=== PATIENT | male | born 1985 | race Hispanic/Latino ===

== ENCOUNTER 2020-07-14 15:01 | Emergency (ER) | payer SELFPAY ==
--- NOTE | 2020-07-14 15:51 | RAD ---
XR Hand Lt 3 View STANDARD HISTORY: Injury, left hand pain. Cut by mirror at work FINDINGS: No fracture or dislocation is identified. No radiographic foreign bodies are identified.
[2020-07-14] MEDS ORDERED: Lidocaine 1% w/Epinephrine 1:100K 20 ML VIAL ONE (16:42)
== END 2020-07-14 17:48 | disposition home or self-care (01) ==
LOC: ERS 15:01
DX: S61.412A Laceration without foreign body of left hand, initial encounter (principal); W25.XXXA Contact with sharp glass, initial encounter; Y99.0 Civilian activity done for income or pay
CPT/HCPCS: 12002

== ENCOUNTER 2022-12-22 21:32 | Emergency (ER) | payer SELFPAY ==
[2022-12-23] MEDS ORDERED: Lidocaine 1% (PF) 30 ML VIAL ONE (01:33)
[2022-12-23] MEDS ORDERED: Bacitracin 1 PK ONE (03:08)
== END 2022-12-23 03:54 | disposition home or self-care (01) ==
LOC: ERS 21:32
DX: S06.9X1A Unspecified intracranial injury with loss of consciousness of 30 minutes or less, initial encounter (principal); S01.112A Laceration without foreign body of left eyelid and periocular area, initial encounter; S01.511A Laceration without foreign body of lip, initial encounter; S01.01XA Laceration without foreign body of scalp, initial encounter; Y04.0XXA Assault by unarmed brawl or fight, initial encounter
CPT/HCPCS: 12001; 12011; 70450; J2001

== ENCOUNTER 2025-05-27 17:32 | Emergency (ER) | payer SELFPAY ==
[2025-05-27] MEDS ORDERED: Boostrix 0.5 ML (Tdap) VIAL (>/=7 yrs of age) ONE (20:22)
[2025-05-27] MEDS ORDERED: Bacitracin 1 PK ONE (20:50)
== END 2025-05-27 20:55 | disposition home or self-care (01) ==
LOC: ERS 17:32
DX: L08.9 Local infection of the skin and subcutaneous tissue, unspecified (principal); K64.9 Unspecified hemorrhoids; Z23 Encounter for immunization
CPT/HCPCS: 90471; 90715

== ENCOUNTER 2025-09-05 09:03 | Emergency (ER) | payer SELFPAY ==
[2025-09-05] MEDS ORDERED: HYDROcodone/Acetaminophen 5/325 mg Tablet ONE (10:48)
== END 2025-09-05 12:11 | disposition home or self-care (01) ==
LOC: ERS 09:03
DX: S60.221A Contusion of right hand, initial encounter (principal); W20.8XXA Other cause of strike by thrown, projected or falling object, initial encounter
CPT/HCPCS: 96372; 99283